=== PATIENT | male | born 1985 | race Caucasian/White ===

== ENCOUNTER 2020-12-26 10:01 | Emergency (ER) | payer BC, SELFPAY ==
--- NOTE | 2020-12-26 10:09 | ED.SKABFB ---
HPI - Skin/Abscess/Foreign Bdy General Chief complaint: Skin/Abscess/Foreign Body Stated complaint: facial redness Time Seen by Provider: 12/26/20 10:09 Source: patient, RN notes reviewed and old records reviewed Mode of arrival: ambulatory Limitations: no limitations History of Present Illness HPI narrative: 35 yo male presents to the [facility] with C/O redness, swelling and warmth for 3 days to the temporal area right face. No blisters. Patient states that he believes it started as a pimple. Denies fevers, change in vision. Denies any drainage. Related Data Home Medications Medication Instructions Recorded Confirmed bupropion HCl 75 mg PO BID 09/22/19 09/22/19 escitalopram oxalate [Lexapro] 10 mg PO DAILY 09/22/19 09/22/19 Allergies Allergy/AdvReac Type Severity Reaction Status Date / Time No Known Allergies Allergy Verified 09/22/19 17:33 Review of Systems Review of Systems: Narrative: CONSTITUTIONAL: Denies fever, chills, or sweats. EYES: Denies visual changes, redness, or discharge. ENT: Denies rhinorrhea, congestion, sore throat, or otalgia. CARDIOVASCULAR: Denies chest pain, palpitations, or edema. RESPIRATORY: Denies cough or dyspnea. SKIN: Denies rash or itching. Positive for this warmth right temporal area MUSCULOSKELETAL: Denies back pain, joint pain, or myalgia. NEUROLOGIC: Denies headache, numbness, or weakness. PSYCHIATRIC: Denies anxiety or depression. All other systems reviewed are negative, except as documented in HPI. PMFSH Past Medical History Medical History Anxiety Depression Pneumonia Pneumothorax Surgical History Surgical History History of tonsillectomy No significant past surgical history Social History Social History Smoking status: Never smoker Alcohol intake: current Gender identity (if verbalized by the patient): Male Comments At the time of my signature, I reviewed and agree with the nursing past medical, surgical, social, and family history. There is no relevant family history pertinent to the patient complaint. Exam Narrative: Exam Narrative: GENERAL: This is a well-nourished, well-developed patient, in no apparent distress. HEAD: normocephalic, atraumatic. EYES: PERRL. Sclera clear/white. Vision is grossly intact. Denies blurry or change in vision. EARS: External ears normal, auditory canals clear and without drainage, TMs normal without perforation. Hearing grossly intact. Preauricular right lymph node enlarged NOSE: External nose normal with no obvious nasal discharge, nares without redness, no rhinorrhea. THROAT: Mucous membranes moist, posterior pharynx clear. NECK: Neck supple, non-tender without lymphadenopathy, masses or thyromegaly. CARDIOVASCULAR: Regular rate and rhythm without murmurs, gallops, or rubs. RESPIRATORY: Clear to auscultation. Breath sounds equal bilaterally. No wheezes, rales, or rhonchi. SKIN: warm, intact. Good texture and turgor. redness with mild swelling and increased warmth. NO blisters or fluctuance. No streaking. NEURO: awake, alert, and oriented to person, place and time. There were no obvious focal neurologic abnormalities. EXTREMITIES: No clubbing, cyanosis, or edema. BACK: Nontender without deformity. HENMT: Head images: 1. 2cm diameter red raised area without fluctuance, no blisters, is warm to touch. No eye or eyelid involvement. Course Vital Signs Vital signs: Vital Signs Temperature 97.9 F 12/26/20 10:13 Pulse Rate 76 12/26/20 10:13 Respiratory Rate 12/26/20 10:13 Blood Pressure 136/94 H 12/26/20 10:13 Pulse Oximetry 99 12/26/20 10:13 Temperature 97.9 F 12/26/20 10:13 Pulse Rate 76 12/26/20 10:13 Respiratory Rate 12/26/20 10:13 Blood Pressure 136/94 H 12/26/20 10:13 Pulse Oximetry 99 12/26/20 10:13 reviewed. Vital
[2020-12-26 10:13] VITALS: BP 136/94; PULSE 76; RESP 20; TEMP 36.6; O2SAT 99
== END 2020-12-26 10:21 | disposition home or self-care (01) ==
PROVIDERS: Emergency Provider Nurse Practitioner; PCP Nurse Practitioner
DX: L03.211 Cellulitis of face (principal); F41.9 Anxiety disorder, unspecified; F32.9 Major depressive disorder, single episode, unspecified
CPT/HCPCS: 99213; G0463